=== PATIENT | female | born 1935 | race Asian ===

== ENCOUNTER 2021-07-26 11:39 | Emergency (ER) | payer MEDICARE ==
[~2021-07-26] VITALS: Ht 162.6 cm; Wt 50.0 kg
[2021-07-26 12:24] LABS: EOSINOPHILS % (AUTO) 1.5 % (1.0-6.0); HEMATOCRIT 40.5 % (36-46); HEMOGLOBIN 13.8 g/dL (12.0-16.0); LYMPHOCYTES # (AUTO) 0.6 K/uL (1.0-4.8); LYMPHOCYTES % (AUTO) 10.6 % (22.0-44.0); MEAN CORPUSCULAR HEMOGLOBIN 32.5 pg (26.0-34.0); MEAN CORPUSCULAR VOLUME 96 fL (80-100); MONOCYTES # (AUTO) 0.2 K/uL (0.1-1.0); MONOCYTES % (AUTO) 4.4 % (2.0-9.0); NEUTROPHILS # (AUTO) 4.7 K/uL (1.8-7.7); NEUTROPHILS % (AUTO) 82.5 % (40.0-70.0); PLATELET COUNT (AUTO) 85 K/uL (150-450); RED BLOOD CELL COUNT(AUTO) 4.23 MIL/uL (4.00-5.20)
[2021-07-26 12:34] LABS: CALCIUM, TOTAL 9.1 mg/dL (8.8-10.5); CREATININE 1.6 mg/dL (0.60-1.30); POTASSIUM 3.7 mmol/L (3.5-5.1)
[2021-07-26] MEDS ORDERED: RINGERS SOLUTION,LACTATED 500 ML IV ONE (13:00)
[2021-07-26] MEDS ORDERED: IOHEXOL 350 MG/ML 150 ML VIAL ONE (13:09)
[2021-07-26] MEDS ORDERED: SODIUM CHLORIDE 0.9% 100 ML ONE (13:09)
[2021-07-26 15:20] LABS: COVID AG,FIA SOURCE NASOPHARYNGEAL
[2021-07-26] MEDS ORDERED: OLANZapine 5 MG RAPDIS TABLET PO PRN (16:15)
[2021-07-26] MEDS ORDERED: LORazepam 2 MG/ML VIAL IM ONE (17:15)
[2021-07-26] MEDS ORDERED: LORazepam 2 MG/ML VIAL IVP ONE (17:15)
[2021-07-26 19:01] VITALS: BP 138/76
== END 2021-07-26 19:15 | disposition short-term general hospital (02) ==
LOC: EMS 11:39
DX: I71.9 Aortic aneurysm of unspecified site, without rupture (principal); R94.31 Abnormal electrocardiogram [ECG] [EKG]; R55 Syncope and collapse; E11.9 Type 2 diabetes mellitus without complications; Z20.822 Contact with and (suspected) exposure to COVID-19
CPT/HCPCS: 36415; 71045; 75635; 80048; 84484; 85025; 86850; 86900; 86901; 87426; 93005; 96374; 99285; J2060; J7050; J7120; Q9967

== ENCOUNTER 2021-08-01 10:04 | Emergency (ER) | payer MEDICARE ==
[~2021-08-01] VITALS: Ht 149.9 cm; Wt 59.1 kg
[2021-08-01 11:59] LABS: BASOPHILS % (AUTO) 0.8 % (0.0-2.0); EOSINOPHILS % (AUTO) 2.6 % (1.0-6.0); HEMATOCRIT 37.6 % (36-46); HEMOGLOBIN 12.6 g/dL (12.0-16.0); LYMPHOCYTES # (AUTO) 0.9 K/uL (1.0-4.8); LYMPHOCYTES % (AUTO) 18.1 % (22.0-44.0); MEAN CORPUSCULAR HEMOGLOBIN 32.3 pg (26.0-34.0); MEAN CORPUSCULAR HGB CONC 33.5 G/dL (31.0-37.0); MEAN CORPUSCULAR VOLUME 97 fL (80-100); MONOCYTES # (AUTO) 0.3 K/uL (0.1-1.0); NEUTROPHILS # (AUTO) 3.5 K/uL (1.8-7.7); NEUTROPHILS % (AUTO) 71.5 % (40.0-70.0)
[2021-08-01 12:11] LABS: INR 1.1 (0.9-1.1)
[2021-08-01 12:21] LABS: CALCIUM, TOTAL 9.1 mg/dL (8.8-10.5); CREATININE 1.47 mg/dL (0.60-1.30)
[2021-08-01 12:24] LABS: ALBUMIN 3.2 g/dL (3.4-5.0); BILIRUBIN,TOTAL 0.5 mg/dL (0.1-1.0); TOTAL PROTEIN, SERUM 6.6 g/dL (6.4-8.2)
[2021-08-01 12:58] LABS: PLATELET COUNT (AUTO) 97 K/uL (150-450)
[2021-08-01 13:20] VITALS: BP 122/77
== END 2021-08-01 13:28 | disposition home or self-care (01) ==
LOC: EMS 10:55
DX: R55 Syncope and collapse (principal); E11.9 Type 2 diabetes mellitus without complications
CPT/HCPCS: 80053; 82962; 85025; 85610; 85730; 93005; 99284